=== PATIENT | female | born 1990 | race Caucasian/White ===

== ENCOUNTER 2016-12-25 12:58 | Emergency (ER) | payer BC ==
[~2016-12-25] VITALS: Ht 154.9 cm; Wt 79.0 kg
[~2016-12-25 12:58] MED LIST: ADDERALL 15 MG; ADDERALL XR 1515 MG PO; ALLEGRA30 MG PO; CARBATROL-ER300 MG; CARBATROL-ER300 MG PO; CLEOCIN300 MG PO; ENDOCET 5-3251 EACH PO; FLONASE16 G1 BOTH NARES; FOLVITE1 MG PO; MIRALAX17 GM PO; Motrin PO; PRENATAL1 EACH PO; PRILOSEC OTC20 MG PO; PROAIR HFA8.5 GM IH; SERTRALINE HCL100 MG PO; TRAMADOL HCL50 MG PO; ULTRAM50 MG PO; UNISOM50 MG PO; VITAMIN B6100 MG PO; ZOLOFT50 M1 PO; ZYRTEC10 M2 PO
[2016-12-25 14:33] LABS: HEMATOCRIT 38.9 % (36.0-46.0); MCHC 33.7 G/DL (30.0-36.0); MCV 92.2 FL (83-99); MEAN PLAT.VOLUME 9.6 uM^3 (9.5-12.4); PLATELET COUNT 294 K/uL (156-360); RBC DIS.WIDTH-CV 11.8 % (11.8-14.6); RBC DIS.WIDTH-SD 39.8 % (39-53); RED BLOOD COUNT 4.22 M/uL (3.80-5.20); WHITE BLOOD COUNT 5.8 K/uL (4.1-10.2)
[2016-12-25] MEDS ORDERED: BUSPAR5 MG PO (14:37)
[2016-12-25] MEDS ORDERED: KEPPRA500 MG PO (14:37)
[2016-12-25] MEDS ORDERED: DEPAKOTE ER500 MG PO (14:37)
[2016-12-25 14:44] LABS: D-DIMER ELISA < 0.15 mg/L FEU (< 0.57)
[2016-12-25 14:46] LABS: CHLORIDE 105 mEq/L (99-109); POTASSIUM 3.7 mEq/L (3.7-5.4); SODIUM 138 mEq/L (136-147)
[2016-12-25 14:47] LABS: GLUCOSE 94 mg/dL (70-99)
[2016-12-25 14:49] LABS: ANION GAP 8 MEQ/L (2-14)
[2016-12-25 14:51] LABS: GFR ESTIMATE (CALCULATED) > 59 mL/min/
[2016-12-25 14:52] LABS: UREA NITROGEN (BUN) 8 mg/dL (9-23)
[2016-12-25 14:56] LABS: TROP-I INTERPRETATION NEGATIVE; TROPONIN-I 0.01 ng/mL (0.0-0.30)
[2016-12-25 14:59] LABS: QUANTITATIVE HCG < 4.0 MIU/ML
[2016-12-25 16:07] VITALS: BP 134/74
[2016-12-25] MEDS ORDERED: NAPROSYN500 MG PO (16:12)
== END 2016-12-25 16:21 | disposition home or self-care (01) ==
LOC: EME 12:58
PROVIDERS: Nurse Practitioner Family
DX: R07.89 Other chest pain (principal); K21.9 Gastro-esophageal reflux disease without esophagitis; F41.9 Anxiety disorder, unspecified; Z87.891 Personal history of nicotine dependence; R00.0 Tachycardia, unspecified; R06.02 Shortness of breath
CPT/HCPCS: 71020; 80048; 84484; 84702; 85027; 85379; 93005; 99281; 99283

== ENCOUNTER 2017-01-08 22:10 | Emergency (ER) | payer BC ==
[~2017-01-08] VITALS: Ht 154.9 cm; Wt 78.7 kg
[~2017-01-08 22:10] MED LIST changes: +BUSPAR5 MG PO; +DEPAKOTE ER500 MG PO; +KEPPRA500 MG PO; +NAPROSYN500 MG PO
[2017-01-08] MEDS ORDERED: ULTRACET1 TABLET PO (23:33)
[2017-01-08 23:54] VITALS: BP 127/90
== END 2017-01-08 23:55 | disposition home or self-care (01) ==
LOC: RME 22:10 → EME 22:10 → RME 23:55
DX: S09.90XA Unspecified injury of head, initial encounter (principal); X58.XXXA Exposure to other specified factors, initial encounter; F07.81 Postconcussional syndrome; G44.309 Post-traumatic headache, unspecified, not intractable
CPT/HCPCS: 99281; 99284

== ENCOUNTER 2017-01-13 16:23 | Emergency (ER) | payer BC ==
[~2017-01-13] VITALS: Ht 154.9 cm; Wt 75.9 kg
[~2017-01-13 16:23] MED LIST changes: +ULTRACET1 TABLET PO
[2017-01-13 16:35] VITALS: BP 109/79
== END 2017-01-13 19:37 | disposition home or self-care (01) ==
LOC: EXP 16:23 → EME 16:23 → EXP 19:37
DX: R51 Headache (principal); S06.0X9D Concussion with loss of consciousness of unspecified duration, subsequent encounter
CPT/HCPCS: 70450; 99281; 99284

== ENCOUNTER 2017-08-02 08:30 | Emergency (ER) | payer BC ==
[~2017-08-02] VITALS: Ht 157.5 cm; Wt 80.2 kg
[2017-08-02 09:46] LABS: POINT-OF-CARE METER ID UU13113747
[2017-08-02] MEDS ORDERED: PREDNISONE5 M1 PO (10:06)
[2017-08-02 10:12] VITALS: BP 116/71
== END 2017-08-02 10:15 | disposition home or self-care (01) ==
LOC: EME 08:30
DX: M54.16 Radiculopathy, lumbar region (principal); K21.9 Gastro-esophageal reflux disease without esophagitis; F90.9 Attention-deficit hyperactivity disorder, unspecified type; F41.9 Anxiety disorder, unspecified; F32.9 Major depressive disorder, single episode, unspecified
CPT/HCPCS: 82948; 99281; 99283

== ENCOUNTER 2017-09-30 17:43 | Emergency (ER) | payer OTHER ==
[~2017-09-30] VITALS: Ht 154.9 cm; Wt 81.8 kg
[~2017-09-30 17:43] MED LIST changes: +PREDNISONE5 M1 PO
[2017-09-30 18:10] LABS: HEMATOCRIT 38.1 % (36.0-46.0); HEMOGLOBIN 12.7 G/DL (11.9-15.5); MCH 31.1 PG (29.0-34.0); MCHC 33.3 G/DL (30.0-36.0); MCV 93.2 FL (83-99); PLATELET COUNT 315 K/uL (156-360); RBC DIS.WIDTH-SD 41.1 % (39-53); RED BLOOD COUNT 4.09 M/uL (3.80-5.20); WHITE BLOOD COUNT 8.3 K/uL (4.1-10.2)
[2017-09-30 18:22] LABS: CHLORIDE 104 mEq/L (99-109); POTASSIUM 3.9 mEq/L (3.7-5.4); SODIUM 140 mEq/L (136-147)
[2017-09-30 18:24] LABS: GLUCOSE 88 mg/dL (70-99)
[2017-09-30 18:28] LABS: CREATININE 0.7 mg/dL (0.6-1.3); GFR ESTIMATE (CALCULATED) > 59 mL/min/
[2017-09-30 18:29] LABS: UREA NITROGEN (BUN) 11 mg/dL (9-23)
[2017-09-30 18:31] LABS: TROP-I INTERPRETATION NEGATIVE; TROPONIN-I < 0.01 ng/mL (0.0-0.30)
[2017-09-30 19:31] LABS: ALBUMIN 4.2 g/dL (3.2-4.8)
[2017-09-30 19:34] LABS: TOTAL PROTEIN 6.8 g/dL (6.4-8.3)
[2017-09-30 19:36] LABS: TOTAL BILIRUBIN 0.1 mg/dL (0.0-1.0)
[2017-09-30 19:37] LABS: ALKALINE PHOSPHATASE 82 IU/L (3-129)
[2017-09-30 19:38] LABS: AMYLASE 48 IU/L (1-118)
[2017-09-30 19:39] LABS: AST (GOT) 18 IU/L (2-34); DIRECT BILIRUBIN 0.1 mg/dL (0.0-0.3)
[2017-09-30 19:40] LABS: ALT (GPT) 20 IU/L (3-49)
[2017-09-30 19:41] LABS: LIPASE 22 U/L (1.0-51.0)
[2017-09-30] MEDS ORDERED: MOTRIN600 MG PO (21:48)
[2017-09-30 22:12] LABS: TROP-I INTERPRETATION NEGATIVE; TROPONIN-I < 0.01 ng/mL (0.0-0.30)
[2017-09-30 22:51] VITALS: BP 117/73
== END 2017-09-30 22:53 | disposition home or self-care (01) ==
LOC: EME 17:43
PROVIDERS: Physician Assistant
DX: M94.0 Chondrocostal junction syndrome [Tietze] (principal); K21.9 Gastro-esophageal reflux disease without esophagitis; F90.9 Attention-deficit hyperactivity disorder, unspecified type; F41.9 Anxiety disorder, unspecified; F32.9 Major depressive disorder, single episode, unspecified
CPT/HCPCS: 71046; 80048; 80076; 82150; 83690; 84484; 85027; 87502; 93005; 99281; 99284; J1885

== ENCOUNTER 2017-10-14 19:31 | Emergency (ER) | payer OTHER ==
[~2017-10-14] VITALS: Ht 154.9 cm; Wt 81.1 kg
[~2017-10-14 19:31] MED LIST changes: +MOTRIN600 MG PO
[2017-10-14 20:34] LABS: HEMOGLOBIN 12.5 G/DL (11.9-15.5); MCHC 33.8 G/DL (30.0-36.0); MCV 91.8 FL (83-99); PLATELET COUNT 272 K/uL (156-360); RBC DIS.WIDTH-CV 12.1 % (11.8-14.6); RBC DIS.WIDTH-SD 40.9 % (39-53); RED BLOOD COUNT 4.03 M/uL (3.80-5.20); WHITE BLOOD COUNT 7.7 K/uL (4.1-10.2)
[2017-10-14 20:46] LABS: ALBUMIN 4.2 g/dL (3.2-4.8); CHLORIDE 106 mEq/L (99-109); POTASSIUM 3.8 mEq/L (3.7-5.4); SODIUM 137 mEq/L (136-147)
[2017-10-14 20:48] LABS: GLUCOSE 95 mg/dL (70-99)
[2017-10-14 20:50] LABS: TOTAL BILIRUBIN 0.1 mg/dL (0.0-1.0)
[2017-10-14 20:52] LABS: ALKALINE PHOSPHATASE 75 IU/L (3-129); CREATININE 0.7 mg/dL (0.6-1.3); GFR ESTIMATE (CALCULATED) > 59 mL/min/
[2017-10-14 20:52] LABS: APPEARANCE SL.HAZY ((CLEAR)); BILIRUBIN NEGATIVE; BLOOD NEGATIVE; COLOR YELLOW ((YELLOW)); GLUCOSE (STRIP) NEGATIVE; KETONES 5; LEUKOCYTES TRACE; NITRITE NEGATIVE; PROTEIN (STRIP) 30; SPECIFIC GRAVITY 1.033 (1.000-1.030); UROBILINOGEN 0.2 MG/DL (0.2-1.0)
[2017-10-14 20:53] LABS: UREA NITROGEN (BUN) 10 mg/dL (9-23)
[2017-10-14 20:54] LABS: AST (GOT) 17 IU/L (2-34)
[2017-10-14 20:55] LABS: ALT (GPT) 20 IU/L (3-49); LIPASE 20 U/L (1.0-51.0)
[2017-10-14 21:01] LABS: QUANTITATIVE HCG < 4.0 MIU/ML
[2017-10-14 21:02] LABS: BACTERIA NONE SEEN /HPF; EPITHELIAL CELLS 1+ /HPF; HYALINE CASTS 0-5 /LPF; MUCUS 4+ /LPF; RED BLOOD CELLS 0-5 /HPF (0-5); UCUL ADDED? NO; WHITE BLOOD CELLS 0-5 /HPF (0-5)
[2017-10-14] MEDS ORDERED: BENTYL20 MG PO (23:52)
[2017-10-14] MEDS ORDERED: PEPCID20 MG PO (23:52)
[2017-10-15 00:26] VITALS: BP 107/69
== END 2017-10-15 00:26 | disposition home or self-care (01) ==
LOC: EME 19:31
DX: K29.00 Acute gastritis without bleeding (principal); K21.9 Gastro-esophageal reflux disease without esophagitis; F90.9 Attention-deficit hyperactivity disorder, unspecified type; F41.9 Anxiety disorder, unspecified; F32.9 Major depressive disorder, single episode, unspecified
CPT/HCPCS: 76705; 80053; 81003; 83690; 84702; 85027; 99281; 99284

== ENCOUNTER 2017-10-21 03:14 | Emergency (ER) | payer OTHER ==
[~2017-10-21] VITALS: Ht 154.9 cm; Wt 81.9 kg
[~2017-10-21 03:14] MED LIST changes: +BENTYL20 MG PO; +PEPCID20 MG PO
[2017-10-21] MEDS ORDERED: MEDROL DOSEPAK4 MG PO (04:34)
[2017-10-21] MEDS ORDERED: TYLENOL WITH C1 EACH PO (04:34)
[2017-10-21 04:55] VITALS: BP 115/73
== END 2017-10-21 04:56 | disposition home or self-care (01) ==
LOC: EME 03:14
DX: J02.9 Acute pharyngitis, unspecified (principal); K21.9 Gastro-esophageal reflux disease without esophagitis; F32.9 Major depressive disorder, single episode, unspecified; F41.9 Anxiety disorder, unspecified; F90.9 Attention-deficit hyperactivity disorder, unspecified type
CPT/HCPCS: 87651 90; 99281; 99284